=== PATIENT | female | born 1965 | race American Indian/Alaskan Native ===

== ENCOUNTER 2016-12-14 13:13 | Outpatient (CLI) | payer BC ==
--- NOTE | 2016-12-15 08:28 | Ultrasound Report ---
ULTRASOUND PELVIC COMPLETE ULTRASOUND TRANSVAGINAL HISTORY: Pelvic pain. TECHNIQUE: Transabdominal and transvaginal ultrasound with color doppler interrogation. The uterus is anteverted and measures 7 x 5 x 5 cm. A large submucosal fibroid in the left lateral wall measures 3.4 x 3.7 x 3.4 cm. There is no significant color Doppler flow within this fibroid. The endometrial stripe measures 5 mm. No complexity or mass. The cervix is unremarkable. The right ovary measures 2.0 x 0.9 x 1.2 cm. The left ovary measures 2.8 x 1.5 x 1.8 cm. No adnexal cyst or mass. No pelvic fluid collection. IMPRESSION: 3.4 x 3.7 cm submucosal fibroid in the left lateral uterine wall.
--- NOTE | 2016-12-15 11:11 | Magnetic Resonance Report ---
MR PELVIS WITH AND WITHOUT CONTRAST HISTORY: Pelvic pain, possible mass complications. TECHNIQUE: Multiple T1 and T2-weighted images with and without fat suppression. Post contrast T1 fat-sat imaging. FINDINGS: Comparison is made to a pelvic ultrasound performed same day. The uterus is anteverted. The uterus measures 7.6 x 4.8 x 5.5 cm on MRI. A 4.2 x 4.1 x 3.6 cm intramural fibroid is noted in the left lateral wall. There is a second smaller intramural fibroid in the posterior wall measuring 1 cm. These fibroids do not enhance following IV contrast. The endometrial stripe is within normal limits. No endometrial mass or fluid collection. The ovaries are unremarkable. Normal bladder, distal ureters and visualized bowel loops. No evidence for pelvic adenopathy, free fluid or inflammatory changes. Normal bone marrow signal in the visualized spine. No abnormal enhancement following IV gadolinium. IMPRESSION: Uterine fibroid disease as described above.
== END 2016-12-14 13:14 | disposition home or self-care (01) ==
LOC: US 13:13
PROVIDERS: ATTEND Obstetrics & Gynecology
DX: D25.0 Submucous leiomyoma of uterus (principal); Z68.23 Body mass index [BMI] 23.0-23.9, adult
CPT/HCPCS: 72197; 76830; 76856; A9577

== ENCOUNTER 2017-09-26 08:59 | Outpatient (CLI) | payer BC ==
--- NOTE | 2017-09-26 10:24 | Mammography Report ---
BILATERAL MAMMOGRAM: FINDINGS: The breast tissue is heterogeneously dense, which could obscure detection of small masses (approximately 50%-75% glandular). No mass, distortion, suspicious calcification, or skin change is seen. No significant changes when compared to prior exam in June 2016. CAD was utilized. IMPRESSION: Negative mammogram. There is no mammographic evidence of malignancy. RECOMMENDATION: Follow-up per ACS guidelines. BI-RADS CATEGORY: 1 = Negative ACR BI-RADS MAMMOGRAPHIC CODES: 0 = Needs additional imaging evaluation; 1 = Negative; 2 = Benign; 3 = Probably benign; 4 = Suspicious; 5 = Malignant; 6 = Known biopsy-proven malignancy COMMENT: 1. Dense breast tissue, i.e., adenosis, fibrocystic changes, etc., may obscure an underlying neoplasm. 2. Approximately 10% of cancers are not detected with mammography. 3. A negative mammography report should not delay biopsy if a clinically suspicious mass is present. COMMENT: Patient follow-up letters are generated in [employer].
== END 2017-09-26 09:00 | disposition home or self-care (01) ==
LOC: SPVWC 08:59
PROVIDERS: ATTEND Internal Medicine
DX: Z12.31 Encounter for screening mammogram for malignant neoplasm of breast (principal)
CPT/HCPCS: 77067

== ENCOUNTER 2018-10-03 15:28 | Outpatient (CLI) | payer BC ==
--- NOTE | 2018-10-03 16:00 | Mammography Report ---
Bilateral mammogram: Compared to 09/26/17. CKD study utilized. Findings: Heterogeneous breast parenchyma bilaterally. Focal 1 cm new asymmetry mid posterior right breast. No microcalcifications. Normal axilla. Impression: Focal new asymmetry right breast. Recommend spot compression and if necessary sonographic examination. BI-RADS CATEGORY: 0 = Needs additional imaging evaluation ACR BI-RADS MAMMOGRAPHIC CODES: 0 = Needs additional imaging evaluation; 1 = Negative; 2 = Benign; 3 = Probably benign; 4 = Suspicious; 5 = Malignant; 6 = Known biopsy-proven malignancy COMMENT: 1. Dense breast tissue, i.e., adenosis, fibrocystic changes, etc., may obscure an underlying neoplasm. 2. Approximately 10% of cancers are not detected with mammography. 3. A negative mammography report should not delay biopsy if a clinically suspicious mass is present. COMMENT: Patient follow-up letters are generated in [employer].
== END 2018-10-03 15:29 | disposition home or self-care (01) ==
LOC: SPVWC 15:28
PROVIDERS: ATTEND Internal Medicine
DX: Z12.31 Encounter for screening mammogram for malignant neoplasm of breast (principal)
CPT/HCPCS: 77067

== ENCOUNTER 2018-10-29 12:50 | Outpatient (CLI) | payer BC ==
--- NOTE | 2018-10-29 13:40 | Mammography Report ---
Spot compression of asymmetric density posterior mid right breast. Compared to 10/03/18. Findings: There is complete effacement noted of the density right breast on spot compression view. No mass or microcalcification is seen. Impression: Benign findings. Annual followup with mammogram recommended .
== END 2018-10-29 12:51 | disposition home or self-care (01) ==
LOC: SPVWC 12:50
PROVIDERS: ATTEND Internal Medicine
DX: N64.89 Other specified disorders of breast (principal)

== ENCOUNTER 2019-10-09 11:40 | Outpatient (CLI) | payer BC ==
--- NOTE | 2019-10-09 14:38 | Mammography Report ---
DIGITAL SCREENING MAMMOGRAM WITH CAD, 10/09/2019 INDICATION: Routine screening mammography. TECHNIQUE: Digital bilateral 2D mammography was obtained in the craniocaudal and mediolateral obliq ue projections. This examination was interpreted with the benefit of Computer-Aided Detection analysi s. COMPARISON: 10/03/2018 FINDINGS: Breast Density: The breasts are heterogeneously dense, which may obscure small masses. There is no evidence of dominant mass, suspicious calcifications or architectural distortion in eithe r breast. IMPRESSION: No mammographic evidence of malignancy. Follow up recommendation: Routine yearly BI-RADS Category 2: Benign. A "normal" or negative report should not discourage follow up or biopsy of a clinically significant f inding. A written summary of these findings will be mailed to the patient. The patient will be entered into a mammography reporting system which will generate a reminder letter for the patient's next appointmen t at the appropriate interval. The [employer] recommends yearly mammograms starting at age 40 and continuing as l miguel as a woman is in good health. Breast MRI is recommended for women with an approximate 20-25% or greater lifetime risk of breast cancer, including women with a strong family history of breast or ova mikie cancer or who have been treated for Hodgkin's disease. Signer Name: Juan Paul MD Signed: 10/09/2019 2:33 PM Workstation Name: [id number]
== END 2019-10-09 11:41 | disposition home or self-care (01) ==
LOC: SPVWC 11:40
PROVIDERS: ATTEND Internal Medicine
DX: Z12.31 Encounter for screening mammogram for malignant neoplasm of breast (principal)
CPT/HCPCS: 77067

== ENCOUNTER 2020-10-15 08:03 | Outpatient (CLI) | payer BC ==
--- NOTE | 2020-10-15 09:12 | Mammography Report ---
DIGITAL SCREENING MAMMOGRAM WITH CAD, 10/15/2020 CLINICAL INFORMATION / INDICATION: Routine screening mammography. TECHNIQUE: Digital bilateral 2D mammography was obtained in the craniocaudal and mediolateral obliqu e projections. This examination was interpreted with the benefit of Computer-Aided Detection analysis . COMPARISON: 10/09/2019 FINDINGS: Breast Density: There are scattered areas of fibroglandular density. No dominant mass, suspicious calcifications, or architectural distortion in either breast. No interval change. IMPRESSION: No mammographic evidence of malignancy. Follow up recommendation: Routine yearly BI-RADS Category 1: Negative. A "normal" or negative report should not discourage follow up or biopsy of a clinically significant f inding. A written summary of these findings will be mailed to the patient. The patient will be entered into a mammography reporting system which will generate a reminder letter for the patient's next appointmen t at the appropriate interval. The [employer] recommends yearly mammograms starting at age 40 and continuing as l miguel as a woman is in good health. Breast MRI is recommended for women with an approximate 20-25% or greater lifetime risk of breast cancer, including women with a strong family history of breast or ova mikie cancer or who have been treated for Hodgkin's disease. Signer Name: Jo Zamora MD Signed: 10/15/2020 9:07 AM Workstation Name: [id number]
== END 2020-10-15 08:04 | disposition home or self-care (01) ==
LOC: SPVWC 08:03
PROVIDERS: ATTEND Internal Medicine
DX: Z12.31 Encounter for screening mammogram for malignant neoplasm of breast (principal)
CPT/HCPCS: 77067

== ENCOUNTER 2021-10-18 16:04 | Outpatient (CLI) | payer BC | END 2021-10-18 16:05 | disposition home or self-care (01) | LOC: SPVWC 16:04 | PROVIDERS: ATTEND Internal Medicine | DX: Z12.31 Encounter for screening mammogram for malignant neoplasm of breast (principal); N64.89 Other specified disorders of breast | CPT/HCPCS: 77067 ==